=== PATIENT | male | born 1935 | race Caucasian/White ===

== ENCOUNTER 2016-07-02 13:27 | Emergency (ER) | payer OTHER, MEDICAID ==
[~2016-07-02] VITALS: Ht 170.2 cm; Wt 65.3 kg
[~2016-07-02 13:27] MED LIST: DOCU100T9 PO; ESOM40CA PO; IBUP-1017 PO; LEVO25TA58 PO; LIP20 PO; VALS160T2 PO
[2016-07-02 13:50] VITALS: BP 114/64; PULSE 65; RESP 20; TEMP 97.9; O2SAT 96
[2016-07-02] MEDS ORDERED: NACL 0.9% 1,000 ML IV ONE (14:08)
[2016-07-02] MEDS ORDERED: DIPHENOXYLATE HCL/ATROP SULF 2.5 MG TAB PO ONE (14:15)
[2016-07-02] MEDS ORDERED: KETOROLAC TROMETHAMINE 30 MG VIAL IVP ONE (14:15)
[2016-07-02 14:25] LABS: BASOPHILS # (AUTO) 0.1 K/uL (0.0-0.2); BASOPHILS % (AUTO) 2.1 % (0.0-2.0); HEMATOCRIT 41.8 % (36-54); HEMOGLOBIN 13.7 g/dL (14.0-18.0); LYMPHOCYTES # (AUTO) 0.6 K/uL (1.0-5.5); LYMPHOCYTES % (AUTO) 14.1 % (20.5-51.5); MEAN CORPUSCULAR HEMOGLOBIN 32 pg (27-31); MEAN CORPUSCULAR HGB CONC 33 % (32-36); MEAN CORPUSCULAR VOLUME 97 fL (79.0-98.0); MONOCYTES # (AUTO) 0.3 K/uL (0.0-1.0); MONOCYTES % (AUTO) 5.9 % (1.7-9.3); NEUTROPHILS # (AUTO) 3.5 K/uL (1.8-7.7); NEUTROPHILS % (AUTO) 77.9 % (40.0-70.0); PLATELET COUNT (AUTO) 178 K/uL (130-430); RED BLOOD CELL COUNT(AUTO) 4.33 MIL/uL (4.2-6.2); RED CELL DISTRIBUTION WIDTH 12.5 % (9.0-15.0); WHITE BLOOD COUNT (AUTO) 4.5 K/uL (4.8-10.8)
[2016-07-02 14:29] LABS: ANION GAP 4 (5-15); CALCIUM 8.9 mg/dL (8.4-11.0); CHLORIDE 100 mmol/L (98-107); CREATININE 1.13 mg/dL (0.55-1.30); GLUCOSE 107 mg/dL (70-99); POTASSIUM 3.3 mmol/L (3.5-5.1); SODIUM SERUM 135 mmol/L (136-145); UREA NITROGEN, BLOOD 18 mg/dL (8-21)
[2016-07-02 14:34] LABS: ALANINE AMINOTRANSFERASE 31 U/L (12-78); ALBUMIN 3.6 g/dL (3.4-4.8); ASPARTATE AMINOTRANSFERASE 17 U/L (10-37); LIPASE 92 U/L (73-393); TOTAL BILIRUBIN 0.5 mg/dL (0.0-1.0); TOTAL PROTEIN, SERUM 7.3 g/dL (6.4-8.3)
[2016-07-02 15:58] VITALS: BP 114/64; PULSE 66; RESP 20; TEMP 98.2; O2SAT 96
== END 2016-07-02 15:58 | disposition home or self-care (01) ==
LOC: SED 13:27
DX: K52.9 Noninfective gastroenteritis and colitis, unspecified (principal)
CPT/HCPCS: 36415; 80053; 83690; 85025; 96361; 96374; 99284; J1885; J7030

== ENCOUNTER 2016-07-18 12:18 | Emergency (ER) | payer OTHER, MEDICAID ==
[~2016-07-18] VITALS: Ht 172.7 cm; Wt 65.8 kg
[2016-07-18 12:18] VITALS: BP_SYST 124
[2016-07-18] MEDS ORDERED: KETOROLAC TROMETHAMINE 30 MG VIAL IM ONE (13:00)
[2016-07-18 14:00] VITALS: BP_SYST 126
== END 2016-07-18 14:00 | disposition home or self-care (01) ==
LOC: SED 12:20
DX: S39.012A Strain of muscle, fascia and tendon of lower back, initial encounter (principal); I10 Essential (primary) hypertension; X50.1XXA Overexertion from prolonged static or awkward postures, initial encounter; Y93.89 Activity, other specified; Y92.89 Other specified places as the place of occurrence of the external cause; Y99.8 Other external cause status
CPT/HCPCS: 72100; 96372; 99284; J1885

== ENCOUNTER 2017-02-28 22:25 | Emergency (ER) | payer OTHER, MEDICAID ==
[~2017-02-28] VITALS: Ht 165.1 cm; Wt 68.0 kg
[2017-02-28 22:31] VITALS: BP_SYST 135
--- NOTE | 2017-02-28 22:55 | NUR ---
Patient to [facility] for evaluation. Side rails up.
--- NOTE | 2017-02-28 23:00 | NUR ---
Pt is alert and orientedx4. Pt C/O cut to right calf, no active bleeding noted. Pain stated as 5/10. No signs of SOB or acute distress noted. Will continue to monitor.
--- NOTE | 2017-02-28 23:15 | NUR ---
AMALIA DUPONT AT BEDSIDE EXAMINING PATIENT.
--- NOTE | 2017-02-28 23:20 | NUR ---
Patient given written and verbal discharge instructions and verbalizes understanding. ER MD DUPONT discussed with patient the results and treatment provided. Patient in stable condition. ID arm band removed. Rx of NORCO, and Clindamycin given. Patient educated on pain management and to follow up with PMD. Pain Scale 2/10.Opportunity for questions provided and answered.
== END 2017-02-28 23:20 | disposition home or self-care (01) ==
LOC: SED 22:25
DX: S81.811A Laceration without foreign body, right lower leg, initial encounter (principal); I10 Essential (primary) hypertension; Z86.79 Personal history of other diseases of the circulatory system; Z79.899 Other long term (current) drug therapy; W22.8XXA Striking against or struck by other objects, initial encounter; Y93.89 Activity, other specified; Y92.89 Other specified places as the place of occurrence of the external cause; Y99.8 Other external cause status
CPT/HCPCS: 99283

== ENCOUNTER 2017-10-24 22:11 | Emergency (ER) | payer OTHER, MEDICAID ==
[~2017-10-24] VITALS: Ht 167.6 cm; Wt 68.0 kg
[~2017-10-24 22:11] MED LIST changes: +LEVO25TA2 PO; -LEVO25TA58 PO
[2017-10-24 22:23] VITALS: BP_SYST 126
--- NOTE | 2017-10-24 23:44 | NUR ---
Placed in room CH1 . Report given to [place] Valdez.
--- NOTE | 2017-10-24 23:53 | NUR ---
Pt was moving trash can this evening, when a heavy metal can fell on great toe of left foot, cutting and loosening nail bed. Pain 08/20.
[2017-10-25] MEDS ORDERED: LIDOCAINE 1% 10 MG/ML, 20 ML MDV IJ ONE (00:45)
[2017-10-25] MEDS ORDERED: BACITRACIN 1 GM OINT TP ONE (00:45)
--- NOTE | 2017-10-25 01:00 | NUR ---
ER at bedside examining patient.
[2017-10-25 01:45] VITALS: BP_SYST 155
--- NOTE | 2017-10-25 01:45 | NUR ---
Patient given Indonesian written and verbal discharge instructions and verbalizes understanding. ER MD discussed with patient the results and treatment provided. Patient in stable condition. ID arm band removed. Rx of Lamisil PO, Bacitracin Oint given. Patient educated on pain management and to follow up with PMD. Pain Scale 5/10. Opportunity for questions provided and answered. Medication side effect fact sheet provided.
== END 2017-10-25 01:45 | disposition home or self-care (01) ==
LOC: SED 22:11
DX: S91.202A Unspecified open wound of left great toe with damage to nail, initial encounter (principal); B35.1 Tinea unguium; E78.00 Pure hypercholesterolemia, unspecified; I10 Essential (primary) hypertension; Z86.72 Personal history of thrombophlebitis; Z90.89 Acquired absence of other organs; Z79.899 Other long term (current) drug therapy; W20.8XXA Other cause of strike by thrown, projected or falling object, initial encounter; Y93.89 Activity, other specified; Y92.89 Other specified places as the place of occurrence of the external cause; Y99.8 Other external cause status
CPT/HCPCS: 11730; 73660; 99284; J2001

== ENCOUNTER 2018-01-07 16:26 | Emergency (ER) | payer OTHER, MEDICAID ==
[~2018-01-07] VITALS: Ht 170.2 cm; Wt 68.0 kg
[2018-01-07 16:41] VITALS: BP_SYST 121
[2018-01-07] MEDS: KETOROLAC TROMETHAMINE 30 MG VIAL IM ONE (17:21)
[2018-01-07 17:36] VITALS: BP_SYST 115
== END 2018-01-07 17:36 | disposition home or self-care (01) ==
LOC: SED 16:26
DX: S46.912A Strain of unspecified muscle, fascia and tendon at shoulder and upper arm level, left arm, initial encounter (principal); K21.9 Gastro-esophageal reflux disease without esophagitis; E78.00 Pure hypercholesterolemia, unspecified; I10 Essential (primary) hypertension; Z86.79 Personal history of other diseases of the circulatory system; Z90.89 Acquired absence of other organs; Z79.899 Other long term (current) drug therapy; W01.0XXA Fall on same level from slipping, tripping and stumbling without subsequent striking against object, initial encounter; Y93.89 Activity, other specified; Y92.89 Other specified places as the place of occurrence of the external cause; Y99.8 Other external cause status
CPT/HCPCS: 73030; 96372; 99283; J1885

== ENCOUNTER 2018-02-05 15:11 | Emergency (ER) | payer OTHER, MEDICAID ==
[~2018-02-05] VITALS: Ht 167.6 cm; Wt 68.0 kg
[2018-02-05 15:11] VITALS: BP_SYST 166
[2018-02-05] MEDS ORDERED: ACETAMINOPHEN 325 MG TABLET PO ONE (15:30)
[2018-02-05 18:43] VITALS: BP_SYST 134
== END 2018-02-05 18:45 | disposition home or self-care (01) ==
LOC: SED 15:11
DX: M25.571 Pain in right ankle and joints of right foot (principal); M25.512 Pain in left shoulder; E78.00 Pure hypercholesterolemia, unspecified; K21.9 Gastro-esophageal reflux disease without esophagitis; I10 Essential (primary) hypertension; Z86.79 Personal history of other diseases of the circulatory system; Z79.899 Other long term (current) drug therapy; X58.XXXA Exposure to other specified factors, initial encounter; Y93.89 Activity, other specified; Y92.89 Other specified places as the place of occurrence of the external cause; Y99.8 Other external cause status
CPT/HCPCS: 73030; 73590-TC; 99283

== ENCOUNTER 2018-04-14 13:29 | Emergency (ER) | payer BC, MEDICAID ==
[~2018-04-14] VITALS: Ht 167.6 cm; Wt 68.0 kg
[2018-04-14 13:40] VITALS: BP_SYST 127
--- NOTE | 2018-04-14 13:45 | NUR ---
Patient to ER bed 3 to gown for evaluation. Side rails up. Report given to Sarah BE.
--- NOTE | 2018-04-14 13:50 | NUR ---
DR Rendon at bedside for ER evaluation
--- NOTE | 2018-04-14 13:55 | NUR ---
Patient came to ER in POV with complaint of RT side flank pain radiating down bilateral legs. States that pain started today at 11:00, and that he has had a previous bout of the same pain but not as severe. He takes Tramadol at home for pain, has chronic back pain, had back SX 20+ years ago. Patient is georgian speaking.
[2018-04-14] MEDS ORDERED: KETOROLAC TROMETHAMINE 60 MG/2 ML VIAL IM ONE (14:00)
--- NOTE | 2018-04-14 14:00 | NUR ---
Patient picked up by xray for CT scan
--- NOTE | 2018-04-14 14:20 | NUR ---
Patient returned from CT scan, tolerated well with minimal discomfort.
[2018-04-14] MEDS ORDERED: DEXAMETHASONE SOD PHOSPHATE 10 MG/ML VIAL IM ONE (15:15)
--- NOTE | 2018-04-14 15:33 | NUR ---
Patient resting in bed, states that pain has lessened to a 5/10, no signs of distress noted, bed locked in lowest position, will continue to monitor.
[2018-04-14 15:46] VITALS: BP_SYST 151
--- NOTE | 2018-04-14 15:46 | NUR ---
Patient given written and verbal discharge instructions in eritrean, patient verbalized understanding. MD Rendon discussed with patient the treatment provided and results of diagnostic exams. Patient in stable condition, walked patient out front entrance, gait is steady. Prescriptions for Motrin and medrol given. Patient educated on pain management and to follow up with welder. Pain Scale 3/10 upon discharge. Opportunity for questions provided and answered. Medication side effect fact sheet provided.
== END 2018-04-14 15:46 | disposition home or self-care (01) ==
LOC: SED 13:29
DX: G89.29 Other chronic pain (principal); M54.5 Low back pain; K21.9 Gastro-esophageal reflux disease without esophagitis; I10 Essential (primary) hypertension; E78.00 Pure hypercholesterolemia, unspecified; Z90.89 Acquired absence of other organs; Z86.79 Personal history of other diseases of the circulatory system; Z79.899 Other long term (current) drug therapy
CPT/HCPCS: 72131; 72192; 96372; 99284; J1100; J1885

== ENCOUNTER 2019-06-11 17:41 | Emergency (ER) | payer BC, MEDICAID ==
[~2019-06-11] VITALS: Ht 167.6 cm; Wt 72.6 kg
[2019-06-11 17:41] VITALS: BP_SYST 130
[2019-06-11] MEDS ORDERED: OMEP40CA33 PO (17:59)
[2019-06-11] MEDS ORDERED: ONDANSETRON HCL 4 MG/2 ML VIAL IVP ONE (18:15)
[2019-06-11] MEDS ORDERED: MORPHINE 4 MG/ML INJ. SYRINGE IVP ONE (18:15)
[2019-06-11 20:45] VITALS: BP_SYST 130
[2019-06-11] MEDS ORDERED: BACITRACIN 1 GM OINT TP ONE (20:48)
== END 2019-06-11 20:45 | disposition home or self-care (01) ==
LOC: SED 17:41
DX: S93.401A Sprain of unspecified ligament of right ankle, initial encounter (principal); S40.011A Contusion of right shoulder, initial encounter; E78.00 Pure hypercholesterolemia, unspecified; K21.9 Gastro-esophageal reflux disease without esophagitis; I10 Essential (primary) hypertension; E07.9 Disorder of thyroid, unspecified; X50.1XXA Overexertion from prolonged static or awkward postures, initial encounter; Y93.39 Activity, other involving climbing, rappelling and jumping off; Y92.89 Other specified places as the place of occurrence of the external cause; Y99.8 Other external cause status
CPT/HCPCS: 73030; 73610; 96374; 96375; 99284; J2270; J2405

== ENCOUNTER 2019-12-15 18:27 | Emergency (ER) | payer BC, MEDICAID ==
[~2019-12-15] VITALS: Ht 167.6 cm; Wt 65.3 kg
[~2019-12-15 18:27] MED LIST changes: -DOCU100T9 PO; -ESOM40CA PO; -IBUP-1017 PO; -LIP20 PO; +OMEP40CA13 PO; -VALS160T2 PO
[2019-12-15 18:36] VITALS: BP_SYST 128
[2019-12-15] MEDS ORDERED: IBUPROFEN 600 MG TABLET PO ONE (19:45)
[2019-12-15 20:02] VITALS: BP_SYST 128
== END 2019-12-15 20:02 | disposition home or self-care (01) ==
LOC: SED 18:27
DX: S43.491A Other sprain of right shoulder joint, initial encounter (principal); I10 Essential (primary) hypertension; E78.00 Pure hypercholesterolemia, unspecified; K21.9 Gastro-esophageal reflux disease without esophagitis; E07.9 Disorder of thyroid, unspecified; W22.8XXA Striking against or struck by other objects, initial encounter; Y93.89 Activity, other specified; Y92.89 Other specified places as the place of occurrence of the external cause; Y99.8 Other external cause status
CPT/HCPCS: 73030; 99283

== ENCOUNTER 2021-04-19 15:21 | Emergency (ER) | payer BC, MEDICAID, SELFPAY ==
[~2021-04-19] VITALS: Ht 167.6 cm; Wt 63.5 kg
[~2021-04-19 15:21] MED LIST changes: -OMEP40CA13 PO; +OMEP40CA20 PO
[2021-04-19 15:39] VITALS: BP_SYST 129
[2021-04-19] MEDS ORDERED: MORPHINE 4 MG INJ. 4 MG/ML VIAL IM ONE (16:30)
[2021-04-19] MEDS ORDERED: KETOROLAC TROMETHAMINE 30 MG VIAL IVP ONE (16:30)
[2021-04-19] MEDS ORDERED: ONDANSETRON HCL 4 MG/2 ML VIAL ONE (16:42)
[2021-04-19] MEDS ORDERED: PIPERACILLIN/TAZO 3.375 GM in NS 50 ML IV ONE (16:45)
[2021-04-19] MEDS ORDERED: NACL 0.9% 1,000 ML IV ONE (16:45)
[2021-04-19 16:46] LABS: ANION GAP 6 (5-15); CALCIUM 8.2 mg/dL (8.4-11.0); CHLORIDE 102 mmol/L (98-107); CREATININE 0.77 mg/dL (0.55-1.30); GLUCOSE 115 mg/dL (70-99); POTASSIUM 3.8 mmol/L (3.5-5.1); SODIUM SERUM 139 mmol/L (136-145); UREA NITROGEN, BLOOD 18 mg/dL (8-21)
[2021-04-19 16:52] LABS: BASOPHILS % (AUTO) 0.4 % (0.0-2.0); EOSINOPHILS % (AUTO) 0.5 % (0.0-4.0); HEMATOCRIT 35.4 % (36-54); HEMOGLOBIN 11.9 g/dL (14.0-18.0); LYMPHOCYTES # (AUTO) 1.8 K/uL (1.0-5.5); LYMPHOCYTES % (AUTO) 24.3 % (20.5-51.5); MEAN CORPUSCULAR HEMOGLOBIN 33 pg (27-31); MEAN CORPUSCULAR HGB CONC 34 % (32-36); MEAN CORPUSCULAR VOLUME 97 fL (79.0-98.0); MONOCYTES # (AUTO) 0.8 K/uL (0.0-1.0); MONOCYTES % (AUTO) 10.5 % (1.7-9.3); NEUTROPHILS # (AUTO) 4.8 K/uL (1.8-7.7); NEUTROPHILS % (AUTO) 64.3 % (40.0-70.0); PLATELET COUNT (AUTO) 207 K/uL (130-430); RED BLOOD CELL COUNT(AUTO) 3.65 MIL/uL (4.2-6.2); RED CELL DISTRIBUTION WIDTH 12.9 % (9.0-15.0); WHITE BLOOD COUNT (AUTO) 7.4 K/uL (4.8-10.8)
[2021-04-19 16:56] LABS: ALANINE AMINOTRANSFERASE 21 U/L (12-78); ALBUMIN 3.4 g/dL (3.4-4.8); ASPARTATE AMINOTRANSFERASE 16 U/L (10-37); LIPASE 92 U/L (73-393); TOTAL BILIRUBIN 0.2 mg/dL (0.0-1.0)
[2021-04-19] MEDS ORDERED: ONDANSETRON HCL 4 MG/2 ML VIAL IVP ONE (17:00)
[2021-04-19] MEDS ORDERED: PIPERACILLIN/TAZOBACTAM 3.375 GM/VIAL (ZOSYN) IV ONE (17:02)
[2021-04-19 18:40] LABS: BILIRUBIN,URINE NEGATIVE (NEGATIVE); BLOOD, URINE NEGATIVE (NEGATIVE); CLARITY/URINE CLEAR (CLEAR); COLOR,URINE YELLOW (YELLOW); GLUCOSE,URINE NEGATIVE (NEGATIVE); KETONES,URINE NEGATIVE (NEGATIVE); LEUKOCYTE ESTERASE ,URINE NEGATIVE (NEGATIVE); NITRITE, URINE NEGATIVE (NEGATIVE); PH,URINE 5.5 (5.0-8.0); PROTEIN URINE NEGATIVE (NEGATIVE); UROBILINOGEN,URINE 0.2 (0.2-1.0)
[2021-04-19] MEDS ORDERED: VANCOMYCIN HCL 1,000 MG in NS 250 ML IV ONE (19:30)
[2021-04-19] MEDS ORDERED: OXYC-128 PO ×2 (19:39)
[2021-04-19] MEDS ORDERED: LEVO500T90 PO (19:59)
[2021-04-19] MEDS ORDERED: HYDR-3917 PO (20:00)
[2021-04-19 20:28] VITALS: BP_SYST 135
[2021-04-19] MEDS ORDERED: HYDROcodone/ACETAMIN 5-325 MG TAB (NORCO/ VICODIN) ONE (21:38)
== END 2021-04-19 20:28 | disposition home or self-care (01) ==
LOC: SED 15:21
DX: G89.18 Other acute postprocedural pain (principal); I10 Essential (primary) hypertension; K21.9 Gastro-esophageal reflux disease without esophagitis; Z79.899 Other long term (current) drug therapy; Z20.822 Contact with and (suspected) exposure to COVID-19
CPT/HCPCS: 36415; 74177; 76376; 80053; 81003; 83605; 83690; 85025; 87040; 87426; 96361; 96374; 96375; 99285; J1885; J2270; J2405; J2543; J7030; Q9967

== ENCOUNTER 2021-08-08 15:25 | Emergency (ER) | payer BC, MEDICAID ==
[~2021-08-08] VITALS: Ht 167.6 cm; Wt 63.5 kg
[~2021-08-08 15:25] MED LIST changes: +HYDR-3917 PO; +LEVO500T90 PO
[2021-08-08 15:51] VITALS: BP_SYST 100
--- NOTE | 2021-08-08 17:00 | NUR ---
Patient to ER bed 3 to gown for evaluation. Side rails up.
--- NOTE | 2021-08-08 17:27 | NUR ---
Pt here from home reporting L elbow pain x 20 days 08/20. Denies fall, states he may have hit his elbow on something. Requesting Xrays. L elbow noted to be red and swollen. Pending MD wellington.
--- NOTE | 2021-08-08 17:36 | NUR ---
ER Dr. Duncan at bedside examining patient.
[2021-08-08] MEDS ORDERED: ACET-2439 PO (17:45)
[2021-08-08 17:54] VITALS: BP_SYST 100
--- NOTE | 2021-08-08 17:56 | NUR ---
Patient given written and verbal discharge instructions and verbalizes understanding. DR.SIN AMALIA GELLER discussed with patient the results and treatment provided. Patient in stable condition. ID arm band removed. Rx of ACETAMINOPHEN given. Patient educated on pain management and to follow up with PMD. Pain Scale 0/10 Opportunity for questions provided and answered. Medication side effect fact sheet provided.
== END 2021-08-08 17:54 | disposition home or self-care (01) ==
LOC: SED 15:25
DX: M70.22 Olecranon bursitis, left elbow (principal); E78.00 Pure hypercholesterolemia, unspecified; I10 Essential (primary) hypertension; K21.9 Gastro-esophageal reflux disease without esophagitis; Z79.899 Other long term (current) drug therapy
CPT/HCPCS: 99282

== ENCOUNTER → 2021-10-09 | Emergency (ER) | payer BC, MEDICAID ==
[~2021-10-09] VITALS: Ht 165.1 cm; Wt 70.3 kg
[~2021-10-09] MED LIST changes: +ACET-2439 PO; +CEPH-548 PO; +IBUP-1969 PO; +LEVO-62 PO; -LEVO500T90 PO
[2021-10-09 17:03] VITALS: BP_SYST 111
[2021-10-09 20:15] VITALS: BP_SYST 111
--- NOTE | 2021-10-09 20:17 | NUR ---
Patient given written and verbal discharge instructions and verbalizes understanding. ER MD discussed with patient the results and treatment provided. Patient in stable condition. ID arm band removed. IV catheter removed intact and dressing applied, no active bleeding. Rx of CEPHALEXIN & IBUPROFEN given. Patient educated on pain management and to follow up with PMD. Pain Scale 0/10. Opportunity for questions provided and answered. Medication side effect fact sheet provided.
== END | disposition home or self-care (01) ==
LOC: SED 16:52
DX: M70.22 Olecranon bursitis, left elbow (principal); R22.32 Localized swelling, mass and lump, left upper limb; I10 Essential (primary) hypertension; K21.9 Gastro-esophageal reflux disease without esophagitis; E78.00 Pure hypercholesterolemia, unspecified; Z79.899 Other long term (current) drug therapy; Y93.89 Activity, other specified
CPT/HCPCS: 99283

== ENCOUNTER 2022-06-09 21:15 | Emergency (ER) | payer OTHER, MEDICAID ==
[~2022-06-09] VITALS: Ht 167.6 cm; Wt 61.2 kg
[2022-06-09 21:43] VITALS: BP_SYST 103
[2022-06-09] MEDS ORDERED: MORPHINE 2 MG/ML INJ. SYRINGE IVP ONE (22:30)
[2022-06-09] MEDS ORDERED: NACL 0.9% 1,000 ML IV ONE (22:30)
[2022-06-10 00:08] LABS: BASOPHILS % (AUTO) 0.4 % (0.0-2.0); EOSINOPHILS # (AUTO) 0.1 K/uL (0.0-0.4); EOSINOPHILS % (AUTO) 1.3 % (0.0-4.0); HEMATOCRIT 36.9 % (36-54); HEMOGLOBIN 12.5 g/dL (14.0-18.0); LYMPHOCYTES # (AUTO) 1.7 K/uL (1.0-5.5); LYMPHOCYTES % (AUTO) 33.6 % (20.5-51.5); MEAN CORPUSCULAR HEMOGLOBIN 34 pg (27-31); MEAN CORPUSCULAR HGB CONC 34 % (32-36); MEAN CORPUSCULAR VOLUME 99 fL (79.0-98.0); MONOCYTES # (AUTO) 0.6 K/uL (0.0-1.0); NEUTROPHILS # (AUTO) 2.7 K/uL (1.8-7.7); NEUTROPHILS % (AUTO) 53.7 % (40.0-70.0); PLATELET COUNT (AUTO) 200 K/uL (130-430); RED BLOOD CELL COUNT(AUTO) 3.74 MIL/uL (4.2-6.2); RED CELL DISTRIBUTION WIDTH 13.3 % (9.0-15.0)
[2022-06-10 00:33] LABS: ANION GAP 6 (5-15); CALCIUM 8.3 mg/dL (8.4-11.0); CHLORIDE 102 mmol/L (98-107); CREATININE 0.89 mg/dL (0.55-1.30); GLUCOSE 103 mg/dL (70-99); UREA NITROGEN, BLOOD 22 mg/dL (8-21)
[2022-06-10 00:37] LABS: ALANINE AMINOTRANSFERASE 22 U/L (12-78); ALBUMIN 3.3 g/dL (3.4-4.8); ASPARTATE AMINOTRANSFERASE 11 U/L (10-37); LIPASE 265 U/L (73-393); TOTAL BILIRUBIN 0.3 mg/dL (0.0-1.0)
[2022-06-10 01:00] VITALS: BP_SYST 148
[2022-06-10] MEDS ORDERED: NAPR-686 PO (01:13)
[2022-06-10] MEDS ORDERED: AMOX250S64 PO (01:13)
== END 2022-06-10 02:12 | disposition home or self-care (01) ==
LOC: SED 21:15
DX: N28.89 Other specified disorders of kidney and ureter (principal); I88.9 Nonspecific lymphadenitis, unspecified; R10.32 Left lower quadrant pain; K21.9 Gastro-esophageal reflux disease without esophagitis; I10 Essential (primary) hypertension; E78.00 Pure hypercholesterolemia, unspecified; Z79.899 Other long term (current) drug therapy
CPT/HCPCS: 99285; 74176; 96374; 96361; 80053; 83690; 85025; 36415; 76376; J2270; J7030

== ENCOUNTER 2023-03-25 20:06 | Emergency (ER) | payer OTHER, MEDICAID ==
[~2023-03-25] VITALS: Ht 167.6 cm; Wt 63.5 kg
[~2023-03-25 20:06] MED LIST changes: +AMOX250S64 PO; +NAPR-686 PO
[2023-03-25 20:20] VITALS: BP_SYST 112; PULSE 61; RESP 16; TEMP 98.1; O2SAT 94
[2023-03-25] MEDS: ONDANSETRON 4 MG ODT TAB PO ONE (21:12)
[2023-03-25 21:28] LABS: BASOPHILS % (AUTO) 0.5 % (0.0-2.0); EOSINOPHILS # (AUTO) 0.1 K/uL (0.0-0.4); EOSINOPHILS % (AUTO) 2.1 % (0.0-4.0); HEMATOCRIT 38.7 % (36-54); HEMOGLOBIN 13.3 g/dL (14.0-18.0); LYMPHOCYTES % (AUTO) 20.3 % (20.5-51.5); MEAN CORPUSCULAR HEMOGLOBIN 34 pg (27-31); MEAN CORPUSCULAR HGB CONC 34 % (32-36); MEAN CORPUSCULAR VOLUME 100 fL (79.0-98.0); MONOCYTES # (AUTO) 0.4 K/uL (0.0-1.0); NEUTROPHILS # (AUTO) 3.5 K/uL (1.8-7.7); NEUTROPHILS % (AUTO) 69.1 % (40.0-70.0); PLATELET COUNT (AUTO) 210 K/uL (130-430); RED BLOOD CELL COUNT(AUTO) 3.89 MIL/uL (4.2-6.2); RED CELL DISTRIBUTION WIDTH 13.6 % (9.0-15.0); WHITE BLOOD COUNT (AUTO) 5.1 K/uL (4.8-10.8)
[2023-03-25 21:37] LABS: ANION GAP 7 (5-15); CALCIUM 9.4 mg/dL (8.4-11.0); CARBON DIOXIDE 31 mmol/L (23-29); CHLORIDE 106 mmol/L (98-107); CREATININE 0.86 mg/dL (0.55-1.30); GLUCOSE 103 mg/dL (74-106); POTASSIUM 4.5 mmol/L (3.5-5.1); SODIUM SERUM 144 mmol/L (136-145); UREA NITROGEN, BLOOD 20 mg/dL (8-21)
[2023-03-25 21:56] LABS: ALANINE AMINOTRANSFERASE 32 U/L (12-78); ALBUMIN 3.4 g/dL (3.4-4.8); AMYLASE 107 U/L (0-100); ASPARTATE AMINOTRANSFERASE 13 U/L (10-37); BILIRUBIN,DIRECT 0.1 mg/dL (0.0-0.3); LACTATE DEHYDROGENASE 167 U/L (85-227); LIPASE 35 U/L (16-77); PROTHROMBIN TIME 10.1 SECS (9.5-12.5); TOTAL BILIRUBIN 0.4 mg/dL (0.0-1.0); TOTAL PROTEIN, SERUM 6.9 g/dL (6.4-8.3)
[2023-03-25 22:48] LABS: BILIRUBIN,URINE NEGATIVE (NEGATIVE); BLOOD, URINE NEGATIVE (NEGATIVE); CLARITY/URINE CLEAR (CLEAR); COLOR,URINE YELLOW (YELLOW); GLUCOSE,URINE NEGATIVE (NEGATIVE); KETONES,URINE NEGATIVE (NEGATIVE); LEUKOCYTE ESTERASE ,URINE NEGATIVE (NEGATIVE); NITRITE, URINE NEGATIVE (NEGATIVE); PROTEIN URINE NEGATIVE (NEGATIVE); UROBILINOGEN,URINE 0.2 (0.2-1.0)
[2023-03-25 23:06] VITALS: BP_SYST 110; PULSE 71; RESP 18; TEMP 98.1; O2SAT 98
== END 2023-03-25 23:06 | disposition left against medical advice (07) ==
LOC: SED 20:06
DX: R10.30 Lower abdominal pain, unspecified (principal); I10 Essential (primary) hypertension; K21.9 Gastro-esophageal reflux disease without esophagitis; Z79.899 Other long term (current) drug therapy
CPT/HCPCS: 99284; 74176; 80076; 80048; 81001; 82150; 83615; 83690; 85025; 85610; 85730; 36415; 76376; 83605; 82397; 81003; Q0162

== ENCOUNTER 2023-04-13 17:13 | Emergency (ER) | payer OTHER, MEDICAID ==
[~2023-04-13] VITALS: Ht 167.6 cm; Wt 61.7 kg
[2023-04-13 17:52] VITALS: BP_SYST 131; PULSE 53; RESP 15; TEMP 97.5; O2SAT 98
[2023-04-13 18:16] LABS: BASOPHILS % (AUTO) 0.4 % (0.0-2.0); EOSINOPHILS # (AUTO) 0.1 K/uL (0.0-0.4); EOSINOPHILS % (AUTO) 1.6 % (0.0-4.0); HEMOGLOBIN 13.2 g/dL (14.0-18.0); LYMPHOCYTES # (AUTO) 1.4 K/uL (1.0-5.5); LYMPHOCYTES % (AUTO) 32.7 % (20.5-51.5); MEAN CORPUSCULAR HEMOGLOBIN 33 pg (27-31); MEAN CORPUSCULAR HGB CONC 34 % (32-36); MEAN CORPUSCULAR VOLUME 99 fL (79.0-98.0); MONOCYTES # (AUTO) 0.5 K/uL (0.0-1.0); MONOCYTES % (AUTO) 10.4 % (1.7-9.3); NEUTROPHILS # (AUTO) 2.4 K/uL (1.8-7.7); NEUTROPHILS % (AUTO) 54.9 % (40.0-70.0); PLATELET COUNT (AUTO) 207 K/uL (130-430); RED BLOOD CELL COUNT(AUTO) 3.94 MIL/uL (4.2-6.2); RED CELL DISTRIBUTION WIDTH 13.6 % (9.0-15.0); WHITE BLOOD COUNT (AUTO) 4.3 K/uL (4.8-10.8)
[2023-04-13 18:23] LABS: PROTHROMBIN TIME 10.4 SECS (9.5-12.5)
[2023-04-13 18:32] LABS: ERYTHROCYTE SEDIMENTATION RATE 5 MM/HR (0-15)
[2023-04-13 18:34] LABS: ANION GAP 6 (5-15); CALCIUM 8.9 mg/dL (8.4-11.0); CARBON DIOXIDE 32 mmol/L (23-29); CHLORIDE 105 mmol/L (98-107); CREATININE 0.75 mg/dL (0.55-1.30); GLUCOSE 112 mg/dL (74-106); POTASSIUM 5.1 mmol/L (3.5-5.1); SODIUM SERUM 143 mmol/L (136-145); UREA NITROGEN, BLOOD 16 mg/dL (8-21); URIC ACID 4.4 mg/dL (2.4-7.0)
[2023-04-13] MEDS ORDERED: IBUP-1969 PO (18:58)
[2023-04-13] MEDS ORDERED: HYDR-3917 PO (18:58)
[2023-04-13 19:13] VITALS: BP_SYST 131; PULSE 53; RESP 15; TEMP 97.5; O2SAT 98
== END 2023-04-13 19:12 | disposition home or self-care (01) ==
LOC: SED 17:13
DX: M13.822 Other specified arthritis, left elbow (principal); K21.9 Gastro-esophageal reflux disease without esophagitis; I10 Essential (primary) hypertension; E78.00 Pure hypercholesterolemia, unspecified; Z79.899 Other long term (current) drug therapy
CPT/HCPCS: 36415; 80048; 84550; 85025; 85610; 85651; 85730; 99284

== ENCOUNTER 2023-05-26 11:01 | Inpatient (IN) | payer OTHER, MEDICAID ==
[~2023-05-26] VITALS: Ht 167.6 cm; Wt 61.2 kg
[2023-05-26 11:09] VITALS: BP_SYST 139; PULSE 85; RESP 24; TEMP 98.1; O2SAT 98
[2023-05-26] MEDS ORDERED: MORPHINE 2 MG/ML INJ. SYRINGE ONE (11:16)
[2023-05-26 11:32] LABS: BASOPHILS % (AUTO) 0.1 % (0.0-2.0); HEMATOCRIT 38.8 % (36-54); HEMOGLOBIN 12.9 g/dL (14.0-18.0); LYMPHOCYTES # (AUTO) 0.2 K/uL (1.0-5.5); LYMPHOCYTES % (AUTO) 3.6 % (20.5-51.5); MEAN CORPUSCULAR HEMOGLOBIN 33 pg (27-31); MEAN CORPUSCULAR HGB CONC 33 % (32-36); MEAN CORPUSCULAR VOLUME 98 fL (79.0-98.0); MONOCYTES % (AUTO) 0.7 % (1.7-9.3); NEUTROPHILS # (AUTO) 4.8 K/uL (1.8-7.7); NEUTROPHILS % (AUTO) 95.6 % (40.0-70.0); PLATELET COUNT (AUTO) 253 K/uL (130-430); RED BLOOD CELL COUNT(AUTO) 3.95 MIL/uL (4.2-6.2); RED CELL DISTRIBUTION WIDTH 13.1 % (9.0-15.0); WHITE BLOOD COUNT (AUTO) 5.1 K/uL (4.8-10.8)
[2023-05-26 11:34] LABS: ANION GAP 10 (5-15); CALCIUM 9.3 mg/dL (8.4-11.0); CARBON DIOXIDE 27 mmol/L (23-29); CHLORIDE 103 mmol/L (98-107); CREATININE 1.02 mg/dL (0.55-1.30); GLUCOSE 104 mg/dL (74-106); POTASSIUM 3.6 mmol/L (3.5-5.1); SODIUM SERUM 140 mmol/L (136-145); UREA NITROGEN, BLOOD 15 mg/dL (8-21)
[2023-05-26 11:36] LABS: PROTHROMBIN TIME 10.2 SECS (9.5-12.5)
[2023-05-26] MEDS: MORPHINE 4 MG INJ. 4 MG/ML VIAL IVP ONE (11:39)
[2023-05-26] MEDS: ONDANSETRON HCL 4 MG/2 ML VIAL IVP ONE (11:40)
[2023-05-26 11:53] LABS: ALANINE AMINOTRANSFERASE 22 U/L (12-78); ALBUMIN 2.9 g/dL (3.4-4.8); ASPARTATE AMINOTRANSFERASE 17 U/L (10-37); BILIRUBIN,DIRECT 0.2 mg/dL (0.0-0.3); LIPASE 26 U/L (16-77); TOTAL BILIRUBIN 0.5 mg/dL (0.0-1.0); TOTAL PROTEIN, SERUM 7.2 g/dL (6.4-8.3)
[2023-05-26 13:18] LABS: BILIRUBIN,URINE NEGATIVE (NEGATIVE); COLOR,URINE YELLOW (YELLOW); GLUCOSE,URINE NEGATIVE (NEGATIVE); KETONES,URINE 1+ (NEGATIVE); LEUKOCYTE ESTERASE ,URINE NEGATIVE (NEGATIVE); NITRITE, URINE POSITIVE (NEGATIVE); PROTEIN URINE NEGATIVE (NEGATIVE); UROBILINOGEN,URINE 0.2 (0.2-1.0)
[2023-05-26 13:24] LABS: BLOOD, URINE TRACE (NEGATIVE); CLARITY/URINE SLIGHTLY HAZY (CLEAR)
[2023-05-26 13:32] LABS: BACTERIA,URINE MANY /HPF (None Seen); RBC,URINE 0-3 /HPF (0-3)
[2023-05-26] MEDS ORDERED: IBUPROFEN 600 MG TABLET PO PRN (13:45)
[2023-05-26] MEDS ORDERED: ONDANSETRON HCL 4 MG/2 ML VIAL IVP PRN (13:45)
[2023-05-26] MEDS ORDERED: LORazepam 2 MG/ML VIAL IVP PRN (13:45)
[2023-05-26] MEDS: NORMAL SALINE 5 ML DISP.SYRIN IVF SCH (14:00)
[2023-05-26] MEDS: ASPIRIN 325 MG TABLET PO ONE (14:00)
[2023-05-26] MEDS ORDERED: ACETAMINOPHEN 325 MG TABLET PO PRN (14:45)
[2023-05-26] MEDS: LEVOTHYROXINE SODIUM 0.025 MG TABLET PO ONE (15:51)
[2023-05-26] MEDS: PANTOPRAZOLE SODIUM 40 MG TAB PO ONE (15:51)
[2023-05-26] MEDS: NACL 0.9% 1,000 ML IV ONE (15:58)
[2023-05-26 18:07] VITALS: BP_SYST 103; PULSE 62; RESP 16; TEMP 98.4; O2SAT 96
[2023-05-26 20:00] VITALS: BP_SYST 105; PULSE 61; RESP 18; TEMP 98.5; O2SAT 99
[2023-05-26] MEDS: HYDROcodone/ACETAMIN 5-325 MG TAB (NORCO/ VICODIN) PO PRN (20:31)
[2023-05-26] MEDS ORDERED: KETOROLAC TROMETHAMINE 30 MG VIAL IVP PRN (21:00)
[2023-05-26] MEDS: DIPHENHYDRAMINE HCL 25 MG CAPSULE PO ONE (23:33)
[2023-05-27] VITALS (8 sets, daily range): BP systolic 100–109; PULSE 49–73; RESP 17–20; TEMP 97.5–98.9; O2SAT 94–98
[2023-05-27 05:23] LABS: BASOPHILS % (AUTO) 0.3 % (0.0-2.0); HEMATOCRIT 31.9 % (36-54); HEMOGLOBIN 10.9 g/dL (14.0-18.0); LYMPHOCYTES # (AUTO) 0.6 K/uL (1.0-5.5); LYMPHOCYTES % (AUTO) 6.8 % (20.5-51.5); MEAN CORPUSCULAR HEMOGLOBIN 33 pg (27-31); MEAN CORPUSCULAR HGB CONC 34 % (32-36); MEAN CORPUSCULAR VOLUME 98 fL (79.0-98.0); MONOCYTES # (AUTO) 0.4 K/uL (0.0-1.0); MONOCYTES % (AUTO) 4.6 % (1.7-9.3); NEUTROPHILS # (AUTO) 8.4 K/uL (1.8-7.7); NEUTROPHILS % (AUTO) 88.3 % (40.0-70.0); PLATELET COUNT (AUTO) 191 K/uL (130-430); RED BLOOD CELL COUNT(AUTO) 3.26 MIL/uL (4.2-6.2); RED CELL DISTRIBUTION WIDTH 13.1 % (9.0-15.0); WHITE BLOOD COUNT (AUTO) 9.5 K/uL (4.8-10.8)
[2023-05-27 05:52] LABS: ALANINE AMINOTRANSFERASE 22 U/L (12-78); ALBUMIN 2.3 g/dL (3.4-4.8); ANION GAP 8 (5-15); ASPARTATE AMINOTRANSFERASE 18 U/L (10-37); CALCIUM 8.2 mg/dL (8.4-11.0); CARBON DIOXIDE 25 mmol/L (23-29); CHLORIDE 105 mmol/L (98-107); CREATININE 1.04 mg/dL (0.55-1.30); GLUCOSE 97 mg/dL (74-106); PHOSPHORUS 2.9 mg/dL (2.7-4.5); POTASSIUM 4.3 mmol/L (3.5-5.1); SODIUM SERUM 138 mmol/L (136-145); TOTAL BILIRUBIN 0.3 mg/dL (0.0-1.0); UREA NITROGEN, BLOOD 19 mg/dL (8-21)
[2023-05-27] MEDS: LEVOTHYROXINE SODIUM 0.025 MG TABLET PO SCH (06:15)
[2023-05-27] MEDS: PANTOPRAZOLE SODIUM 40 MG TAB PO SCH (08:50)
[2023-05-27] MEDS: levoFLOXacin 500 MG TABLET PO SCH (08:50)
[2023-05-27] MEDS: ATORVASTATIN 10 MG TABLET PO ONE (10:31)
[2023-05-27] MEDS: ASPIRIN 81 MG TAB.CHEW PO ONE (10:31)
[2023-05-27] MEDS: DIPHENHYDRAMINE HCL 25 MG CAPSULE PO SCH (21:00)
[2023-05-28 01:38] VITALS: BP_SYST 110; PULSE 52; RESP 18; TEMP 98.2; O2SAT 98
[2023-05-28 06:30] LABS: BASOPHILS % (AUTO) 0.4 % (0.0-2.0); EOSINOPHILS % (AUTO) 0.3 % (0.0-4.0); HEMATOCRIT 34.7 % (36-54); HEMOGLOBIN 11.6 g/dL (14.0-18.0); LYMPHOCYTES # (AUTO) 1.3 K/uL (1.0-5.5); LYMPHOCYTES % (AUTO) 12.7 % (20.5-51.5); MEAN CORPUSCULAR HEMOGLOBIN 33 pg (27-31); MEAN CORPUSCULAR HGB CONC 34 % (32-36); MEAN CORPUSCULAR VOLUME 98 fL (79.0-98.0); MONOCYTES # (AUTO) 0.7 K/uL (0.0-1.0); MONOCYTES % (AUTO) 6.8 % (1.7-9.3); NEUTROPHILS % (AUTO) 79.8 % (40.0-70.0); PLATELET COUNT (AUTO) 197 K/uL (130-430); RED BLOOD CELL COUNT(AUTO) 3.53 MIL/uL (4.2-6.2); WHITE BLOOD COUNT (AUTO) 10.1 K/uL (4.8-10.8)
[2023-05-28 07:06] LABS: ALANINE AMINOTRANSFERASE 26 U/L (12-78); ALBUMIN 2.3 g/dL (3.4-4.8); ANION GAP 6 (5-15); ASPARTATE AMINOTRANSFERASE 18 U/L (10-37); CALCIUM 8.7 mg/dL (8.4-11.0); CARBON DIOXIDE 28 mmol/L (23-29); CHLORIDE 106 mmol/L (98-107); CREATININE 0.86 mg/dL (0.55-1.30); GLUCOSE 98 mg/dL (74-106); SODIUM SERUM 140 mmol/L (136-145); TOTAL BILIRUBIN 0.2 mg/dL (0.0-1.0); TOTAL PROTEIN, SERUM 6.5 g/dL (6.4-8.3); UREA NITROGEN, BLOOD 17 mg/dL (8-21)
[2023-05-28 08:00] VITALS: BP_SYST 146; PULSE 64; RESP 26; TEMP 98.3; O2SAT 99
[2023-05-28] MEDS: ATORVASTATIN 10 MG TABLET PO SCH (09:14)
[2023-05-28] MEDS: ASPIRIN 81 MG TAB.CHEW PO SCH (09:14)
[2023-05-28 11:23] VITALS: BP_SYST 118; PULSE 52; RESP 16; TEMP 98.8; O2SAT 93
[2023-05-28] MEDS ORDERED: LEVO-62 PO (14:16)
[2023-05-28] MEDS ORDERED: LIP10 PO (14:16)
[2023-05-28] MEDS ORDERED: ASA81 PO (14:16)
[2023-05-28 15:15] VITALS: BP_SYST 129; PULSE 61; RESP 16; TEMP 97.5; O2SAT 100
[2023-05-28 15:54] VITALS: BP_SYST 131; PULSE 65; RESP 18; TEMP 97.8; O2SAT 100
== END 2023-05-28 17:10 | disposition home health service (06) | DRG 313 ==
LOC: SED 11:01 → STU 13:44 → SMU 05-28 15:15
PROVIDERS: ADMIT Specialist; ATTEND Specialist
DX: R07.89 Other chest pain (principal); N39.0 Urinary tract infection, site not specified; I24.89 Other forms of acute ischemic heart disease; E44.0 Moderate protein-calorie malnutrition; I25.10 Atherosclerotic heart disease of native coronary artery without angina pectoris; I10 Essential (primary) hypertension; E03.9 Hypothyroidism, unspecified; E78.5 Hyperlipidemia, unspecified; E88.09 Other disorders of plasma-protein metabolism, not elsewhere classified; B96.20 Unspecified Escherichia coli [E. coli] as the cause of diseases classified elsewhere; K21.9 Gastro-esophageal reflux disease without esophagitis; Z85.46 Personal history of malignant neoplasm of prostate; Z79.899 Other long term (current) drug therapy; E78.00 Pure hypercholesterolemia, unspecified; Z68.21 Body mass index [BMI] 21.0-21.9, adult
CPT/HCPCS: 36415; 71045; 71275; 72191; 74175; 80048; 80053; 80076; 81000; 81001; 81015; 83690; 83735; 84100; 84484; 85025; 85610; 85730; 87086; 87186; 93005; 93306; 96361; 96374; 96375; 97116-GP; 99291; G0378; J2270; J2405; Q0163

== ENCOUNTER 2023-10-05 10:08 | Emergency (ER) | payer OTHER, MEDICAID ==
[~2023-10-05] VITALS: Ht 167.6 cm; Wt 70.3 kg
[~2023-10-05 10:08] MED LIST changes: -ACET-2439 PO; -AMOX250S64 PO; +ASA81 PO; +ATOR-449 PO; -CEPH-548 PO; -HYDR-3917 PO; -IBUP-1969 PO; -LEVO-62 PO; -LEVO25TA2 PO; -NAPR-686 PO
[2023-10-05 10:20] VITALS: BP_SYST 145; PULSE 66; RESP 16; TEMP 97.6; O2SAT 98
[2023-10-05 10:54] LABS: BASOPHILS % (AUTO) 0.3 % (0.0-2.0); EOSINOPHILS % (AUTO) 1.1 % (0.0-4.0); HEMATOCRIT 39.6 % (36-54); HEMOGLOBIN 13.2 g/dL (14.0-18.0); LYMPHOCYTES # (AUTO) 1.2 K/uL (1.0-5.5); LYMPHOCYTES % (AUTO) 35.2 % (20.5-51.5); MEAN CORPUSCULAR HEMOGLOBIN 33 pg (27-31); MEAN CORPUSCULAR HGB CONC 33 % (32-36); MEAN CORPUSCULAR VOLUME 99 fL (79.0-98.0); MONOCYTES # (AUTO) 0.4 K/uL (0.0-1.0); NEUTROPHILS # (AUTO) 1.8 K/uL (1.8-7.7); NEUTROPHILS % (AUTO) 52.4 % (40.0-70.0); PLATELET COUNT (AUTO) 166 K/uL (130-430); RED BLOOD CELL COUNT(AUTO) 4.01 MIL/uL (4.2-6.2); RED CELL DISTRIBUTION WIDTH 13.2 % (9.0-15.0); WHITE BLOOD COUNT (AUTO) 3.5 K/uL (4.8-10.8)
[2023-10-05 11:06] LABS: PROTHROMBIN TIME 10.5 SECS (9.5-12.5)
[2023-10-05 11:13] LABS: ALANINE AMINOTRANSFERASE 16 U/L (12-78); ALBUMIN 3.5 g/dL (3.4-4.8); AMYLASE 147 U/L (0-100); ANION GAP 8 (5-15); ASPARTATE AMINOTRANSFERASE 13 U/L (10-37); BILIRUBIN,DIRECT 0.1 mg/dL (0.0-0.3); CALCIUM 9.1 mg/dL (8.4-11.0); CARBON DIOXIDE 29 mmol/L (23-29); CHLORIDE 104 mmol/L (98-107); CREATINE KINASE, TOTAL 96 U/L (39-308); CREATININE 0.77 mg/dL (0.55-1.30); GLUCOSE 95 mg/dL (74-106); LIPASE 149 U/L (16-77); POTASSIUM 3.7 mmol/L (3.5-5.1); SODIUM SERUM 141 mmol/L (136-145); TOTAL BILIRUBIN 0.4 mg/dL (0.0-1.0); TOTAL PROTEIN, SERUM 6.6 g/dL (6.4-8.3); UREA NITROGEN, BLOOD 13 mg/dL (8-21)
[2023-10-05 11:18] LABS: BILIRUBIN,URINE NEGATIVE (NEGATIVE); BLOOD, URINE NEGATIVE (NEGATIVE); CLARITY/URINE CLEAR (CLEAR); COLOR,URINE YELLOW (YELLOW); GLUCOSE,URINE NEGATIVE (NEGATIVE); KETONES,URINE NEGATIVE (NEGATIVE); LEUKOCYTE ESTERASE ,URINE NEGATIVE (NEGATIVE); NITRITE, URINE NEGATIVE (NEGATIVE); PROTEIN URINE NEGATIVE (NEGATIVE); UROBILINOGEN,URINE 0.2 (0.2-1.0)
[2023-10-05] MEDS ORDERED: iohexoL 350 mgI/mL, 100 ML INFUS..BTL IV ONE (12:20)
[2023-10-05] MEDS ORDERED: LISI10TA29 PO (13:39)
[2023-10-05] MEDS ORDERED: LEVO25TA7 PO (13:39)
[2023-10-05] MEDS ORDERED: BACL10TA PO (13:39)
[2023-10-05] MEDS ORDERED: DOCU-156 PO (13:39)
[2023-10-05] MEDS ORDERED: TAMS0.4C96 PO (13:39)
[2023-10-05] MEDS ORDERED: PANT40TA45 PO (13:39)
[2023-10-05] MEDS ORDERED: TRAM50TA2 PO (14:24)
[2023-10-05] MEDS ORDERED: IBUP-1969 PO (14:24)
[2023-10-05 14:54] VITALS: BP_SYST 162; PULSE 45; RESP 17; TEMP 97.8; O2SAT 97
== END 2023-10-05 14:57 | disposition home or self-care (01) ==
LOC: SED 10:08
DX: R07.89 Other chest pain (principal); R10.84 Generalized abdominal pain; K21.9 Gastro-esophageal reflux disease without esophagitis; I10 Essential (primary) hypertension; E78.00 Pure hypercholesterolemia, unspecified; Z79.899 Other long term (current) drug therapy; Z79.2 Long term (current) use of antibiotics; Z79.82 Long term (current) use of aspirin
CPT/HCPCS: 99285; 71275; 71045; 80076; 80048; 81001; 82150; 82550; 83690; 85025; 85610; 85730; 87086; 84484; 36415; 93005; 74176; 83605; 82397; 81003; Q9967